=== PATIENT | male | born 1985 | race Caucasian/White ===

== ENCOUNTER 2018-10-05 19:25 | Emergency (ER) | payer BC, MEDICAID, OTHER ==
[~2018-10-05] VITALS: Ht 182.9 cm; Wt 106.6 kg
[2018-10-05 19:43] VITALS: BP 121/71
[2018-10-05] MEDS ORDERED: TDAP [DIPH/PERTUSSIS/TET] 0.5 ML VIAL IM ONE ×2 (19:57→20:00)
== END 2018-10-05 20:06 | disposition home or self-care (01) ==
LOC: ER 19:31
DX: L03.116 Cellulitis of left lower limb (principal); L03.115 Cellulitis of right lower limb; Z23 Encounter for immunization; W57.XXXA Bitten or stung by nonvenomous insect and other nonvenomous arthropods, initial encounter; Y93.89 Activity, other specified; Y92.89 Other specified places as the place of occurrence of the external cause; Y99.8 Other external cause status
CPT/HCPCS: 90715

== ENCOUNTER 2018-10-16 13:52 | Emergency (ER) | payer MEDICAID ==
[~2018-10-16] VITALS: Ht 182.9 cm; Wt 104.3 kg
[2018-10-16 14:16] VITALS: BP 133/82
--- NOTE | 2018-10-16 16:30 | NUR ---
Patient discharged to home in stable condition. Written and verbal after care instructions given. Patient verbalizes understanding of instruction.
== END 2018-10-16 16:35 | disposition home or self-care (01) ==
LOC: ER 13:55
DX: R21 Rash and other nonspecific skin eruption (principal); R58 Hemorrhage, not elsewhere classified